=== PATIENT | female | born 1955 | race Two or more races ===

== ENCOUNTER 2025-02-22 09:57 | Emergency (ER) | payer OTHER ==
[~2025-02-22] VITALS: Ht 170.2 cm; Wt 77.0 kg
[2025-02-22 10:08] VITALS: O2SAT 99
[2025-02-22] MEDS: LIDOCAINE HCL/EPINEPHRINE 1%-EPI 1:100,000 20ML VIAL INFIL ONE (11:14)
[2025-02-22] MEDS ORDERED: NA P133E RC (11:44)
[2025-02-22] MEDS ORDERED: SULF1TAB48 MT (11:44)
[2025-02-22] MEDS ORDERED: CEPH500T MT (11:44)
[2025-02-22 12:07] VITALS: BP 161/98; PULSE 75; RESP 16; TEMP 36.8; O2SAT 99
== END 2025-02-22 12:09 | disposition home or self-care (01) ==
LOC: ER 09:57
DX: L02.91 Cutaneous abscess, unspecified (principal); K59.00 Constipation, unspecified; Z85.038 Personal history of other malignant neoplasm of large intestine; Z79.899 Other long term (current) drug therapy
CPT/HCPCS: 99284; 56405; 87070; 87205; J2004; 10060; 99283

== ENCOUNTER 2025-02-25 08:14 | Emergency (ER) | payer OTHER ==
[~2025-02-25] VITALS: Ht 170.2 cm; Wt 84.0 kg
[~2025-02-25 08:14] MED LIST: CEPH500T MT; NA P133E RC; SULF1TAB48 MT
[2025-02-25 08:20] VITALS: O2SAT 99
[2025-02-25 09:06] VITALS: BP 172/92; PULSE 72; RESP 14; TEMP 37; O2SAT 99
[2025-02-25] MEDS: CEPHALEXIN 250MG CAPSULE PO STA (09:06)
[2025-02-25] MEDS: SULFAMETHOXAZOLE/TRIMETHOPRIM 800/160MG TABLET PO STA (09:06)
== END 2025-02-25 09:10 | disposition home or self-care (01) ==
LOC: ER 08:14
DX: L02.91 Cutaneous abscess, unspecified (principal); Z48.00 Encounter for change or removal of nonsurgical wound dressing; Z59.71 Insufficient health insurance coverage
CPT/HCPCS: 99283